=== PATIENT | male | born 1935 | race Caucasian/White ===

== ENCOUNTER 2021-06-02 04:38 | Emergency (ER) | payer OTHER ==
[~2021-06-02] VITALS: Ht 182.9 cm; Wt 90.0 kg
[2021-06-02 05:05] LABS: BASOPHILS % 0.4 % (0.0-2.0); EOSINOPHILS % 2.5 % (0.0-5.0); HEMATOCRIT. 39.6 % (42.0-52.0); HEMOGLOBIN. 13.4 g/dL (14.0-18.0); LYMPHOCYTES % 27.9 % (20.0-50.0); MEAN CORPUSCULAR HEMOGLOBIN 29.1 pg (28.0-32.0); MEAN CORPUSCULAR VOLUME 86.3 fL (80.0-94.0); MONOCYTES % 5.6 % (2.0-8.0); NEUTROPHILS % 63.6 % (40.0-76.0); PLATELET 200 x1000/uL (130-400); RED BLOOD CELL COUNT 4.59 mill/uL (4.7-6.1); RED CELL DISTRIBUTION WIDTH 14.5 % (11.6-14.6)
[2021-06-02 05:10] LABS: CHLORIDE 109 mEq/L (98-107)
[2021-06-02 05:16] LABS: PROTHROMBIN TIME 10.3 sec (9.6-11.0)
[2021-06-02] MEDS ORDERED: ASPIRIN 325MG EC TABLET PO ONE (06:30)
[2021-06-02 08:15] VITALS: BP 145/75
== END 2021-06-02 10:58 | disposition short-term general hospital (02) ==
LOC: ER 04:38
DX: G45.9 Transient cerebral ischemic attack, unspecified (principal); N28.9 Disorder of kidney and ureter, unspecified; I10 Essential (primary) hypertension
CPT/HCPCS: 36415; 71045; 80053; 82962; 83880; 84484; 85025; 93005; 99291

== ENCOUNTER 2021-07-04 10:07 | Emergency (ER) | payer OTHER ==
[~2021-07-04] VITALS: Ht 170.2 cm; Wt 75.0 kg
[2021-07-04] MEDS ORDERED: SODIUM CHLORIDE 0.9% 500 ML IV ONE (10:45)
[2021-07-04 11:06] LABS: BASOPHILS % 0.6 % (0.0-2.0); HEMATOCRIT. 35.6 % (42.0-52.0); HEMOGLOBIN. 11.8 g/dL (14.0-18.0); MEAN CORPUSCULAR HEMOGLOBIN 28.8 pg (28.0-32.0); MEAN PLATELET VOLUME 9.2 fl (7.4-10.4); MONOCYTES % 4.4 % (2.0-8.0); PLATELET 196 x1000/uL (130-400); RED BLOOD CELL COUNT 4.09 mill/uL (4.7-6.1)
[2021-07-04 11:14] LABS: CHLORIDE 106 mEq/L (98-107)
[2021-07-04] MEDS ORDERED: IOHEXOL-300 100 ML BOTTLE ONE (12:17)
[2021-07-04] MEDS ORDERED: ACETAMINOPHEN 325MG TABLET PO ONE (12:45)
[2021-07-04 13:58] VITALS: BP 115/71
== END 2021-07-04 14:42 | disposition short-term general hospital (02) ==
LOC: ER 10:26 → EDBEDREQ 12:18 → EDBEDREQTM 12:18 → CANBEDREQ 13:50 → ER 14:42
DX: R55 Syncope and collapse (principal); S29.8XXA Other specified injuries of thorax, initial encounter; S39.81XA Other specified injuries of abdomen, initial encounter; I69.920 Aphasia following unspecified cerebrovascular disease; I69.992 Facial weakness following unspecified cerebrovascular disease; E11.649 Type 2 diabetes mellitus with hypoglycemia without coma; R90.82 White matter disease, unspecified; I10 Essential (primary) hypertension; W01.0XXA Fall on same level from slipping, tripping and stumbling without subsequent striking against object, initial encounter; Y93.89 Activity, other specified; Y92.89 Other specified places as the place of occurrence of the external cause
CPT/HCPCS: 36415; 70450; 71045; 71260; 72125; 74177; 80053; 83690; 83880; 84484; 85025; 93005; 96360; 96361; 99285; J7040; Q9967

== ENCOUNTER 2021-07-15 08:36 | Inpatient (IN) | payer OTHER ==
[~2021-07-15] VITALS: Ht 175.3 cm; Wt 62.6 kg
[2021-07-15 09:56] LABS: BASOPHILS % 0.5 % (0.0-2.0); HEMATOCRIT. 25.3 % (42.0-52.0); HEMOGLOBIN. 8.4 g/dL (14.0-18.0); LYMPHOCYTES % 10.6 % (20.0-50.0); MEAN CORPUSCULAR VOLUME 87.8 fL (80.0-94.0); MEAN PLATELET VOLUME 9.6 fl (7.4-10.4); MONOCYTES % 4.5 % (2.0-8.0); NEUTROPHILS % 83.4 % (40.0-76.0); PLATELET 218 x1000/uL (130-400); RED BLOOD CELL COUNT 2.88 mill/uL (4.7-6.1); RED CELL DISTRIBUTION WIDTH 15.5 % (11.6-14.6)
[2021-07-15 10:03] LABS: CHLORIDE 111 mEq/L (98-107)
[2021-07-15 10:05] LABS: PROTHROMBIN TIME 11.1 sec (9.6-11.0)
[2021-07-15] MEDS ORDERED: DOCUSATE SODIUM 100MG CAPSULE PO PRN (11:00)
[2021-07-15] MEDS ORDERED: DEXTROSE 50% WATER 50ML SYRINGE IV PRN (11:00)
[2021-07-15] MEDS ORDERED: GUAIFENESIN 200MG/10ML SUGAR FREE UDC PO PRN (11:00)
[2021-07-15] MEDS ORDERED: TRAMADOL 50MG TABLET PO PRN (11:00)
[2021-07-15] MEDS: DEXT 5%/LACTATED RINGERS 1,000 ML IV SCH (11:00)
[2021-07-15] MEDS ORDERED: CLONIDINE 0.1MG TABLET PO PRN (11:00)
[2021-07-15] MEDS ORDERED: NITROGLYCERIN 0.4MG TABLET SL SL PRN (11:00)
[2021-07-15] MEDS ORDERED: IPRATROPIUM/ALBUTEROL 0.5-3(2.5)MG/3ML NEB NEB PRN (11:00)
[2021-07-15] MEDS ORDERED: ACETAMINOPHEN 325MG TABLET PO PRN ×2 (11:00)
[2021-07-15] MEDS ORDERED: MAGNESIUM/ALUMINUM HYDROXIDE/SIMETHICONE 30ML UDC PO PRN (11:00)
[2021-07-15] MEDS ORDERED: ONDANSETRON HCL 4MG/2ML INJ IV PRN (11:00)
[2021-07-15] MEDS ORDERED: NALOXONE HCL 0.4MG/ML VIAL IV PRN (11:15)
[2021-07-15] MEDS ORDERED: PANTOPRAZOLE 80 MG in SODIUM CHLORIDE 0.9% 100 ML IV SCH (12:00)
[2021-07-15] MEDS: INSULIN LISPRO 100 UNITS/ML SUBCUT SCH ×3 (13:20→21:00)
[2021-07-15 14:23] LABS: TOTAL IRON BINDING CAPACITY 275 ug/dL (250-450)
[2021-07-15 14:29] LABS: FOLIC ACID (FOLATE) SERUM > 20.00 ng/mL (>5.38)
[2021-07-15 14:40] LABS: VITAMIN B12 SERUM 366 pg/mL (211-911)
[2021-07-15 15:54] LABS: FERRITIN 17 ng/mL (22-322)
[2021-07-15] MEDS: BLOOD SUGAR DIAGNOSTIC STRIP TEST SCH ×3 (16:10→21:00)
[2021-07-15 16:20] LABS: HEMATOCRIT 25.9 % (42.0-52.0); HEMOGLOBIN 8.6 g/dL (14.0-18.0)
[2021-07-15 17:50] LABS: *AMPHETAMINES SCREEN URINE NEGATIVE (NEGATIVE); *BARBITURATES SCREEN URINE NEGATIVE (NEGATIVE)
[2021-07-15 17:51] LABS: *BENZODIAZEPINES SCREEN URINE NEGATIVE (NEGATIVE); *COCAINE SCREEN URINE NEGATIVE (NEGATIVE); CANNABINOID URINE SCREEN NEGATIVE (NEGATIVE); METHADONE URINE SCREEN NEGATIVE (NEGATIVE); OPIATES URINE SCREEN NEGATIVE (NEGATIVE); PHENCYCLIDINE URINE SCREEN NEGATIVE (NEGATIVE)
[2021-07-15] MEDS ORDERED: IRON SUCROSE COMPLEX 100 MG/5 ML ML IV SCH (18:45)
[2021-07-15 20:30] VITALS: BP 150/53
[2021-07-15 22:00] VITALS: BP 129/60
[2021-07-15] MEDS: IRON SUCROSE COMPLEX 100 MG/5 ML ML IV SCH (22:35)
[2021-07-15] MEDS: ZOLPIDEM TARTRATE 5MG TABLET PO PRN (22:35)
[2021-07-15 23:40] VITALS: BP 150/53
[2021-07-15] MEDS ORDERED: ASPI-1497 PO (23:43)
[2021-07-16] VITALS (11 sets, daily range): BP systolic 102–155; BP diastolic 48–80
[2021-07-16] MEDS: DEXT 5%/LACTATED RINGERS 1,000 ML IV SCH ×2 (00:36→13:08)
[2021-07-16 01:18] LABS: HEMOGLOBIN 7.7 g/dL (14.0-18.0)
[2021-07-16 06:34] LABS: INR 1.1; PROTHROMBIN TIME 11.3 sec (9.6-11.0)
[2021-07-16 06:37] LABS: CHLORIDE 112 mEq/L (98-107)
[2021-07-16 06:43] LABS: BASOPHILS % 0.5 % (0.0-2.0); EOSINOPHILS % 1.3 % (0.0-5.0); HEMATOCRIT. 23.4 % (42.0-52.0); HEMOGLOBIN. 7.9 g/dL (14.0-18.0); LYMPHOCYTES % 15.8 % (20.0-50.0); MEAN CORPUSCULAR HEMOGLOBIN 29.4 pg (28.0-32.0); MEAN CORPUSCULAR VOLUME 87.3 fL (80.0-94.0); MEAN PLATELET VOLUME 9.2 fl (7.4-10.4); MONOCYTES % 5.8 % (2.0-8.0); NEUTROPHILS % 76.6 % (40.0-76.0); PLATELET 201 x1000/uL (130-400); RED BLOOD CELL COUNT 2.68 mill/uL (4.7-6.1); RED CELL DISTRIBUTION WIDTH 15.2 % (11.6-14.6)
[2021-07-16 06:51] LABS: PHOSPHORUS 1.6 mg/dL (2.5-4.9)
[2021-07-16] MEDS: INSULIN LISPRO 100 UNITS/ML SUBCUT SCH ×4 (07:40→21:00)
[2021-07-16] MEDS: BLOOD SUGAR DIAGNOSTIC STRIP TEST SCH ×4 (08:01→21:08)
[2021-07-16 12:53] LABS: HEMATOCRIT 22.5 % (42.0-52.0); HEMOGLOBIN 7.5 g/dL (14.0-18.0)
[2021-07-16] MEDS: PANTOPRAZOLE SODIUM 40 MG/VIAL IV SCH (13:08)
[2021-07-16] MEDS: ZOLPIDEM TARTRATE 5MG TABLET PO PRN (21:07)
[2021-07-16] MEDS: IRON SUCROSE COMPLEX 100 MG/5 ML ML IV SCH (21:07)
[2021-07-16] MEDS: HALOPERIDOL LACTATE 5MG/ML VIAL IM PRN (21:31)
[2021-07-16 22:56] LABS: HEMATOCRIT 26.6 % (42.0-52.0); HEMOGLOBIN 9.1 g/dL (14.0-18.0)
[2021-07-17] VITALS (7 sets, daily range): BP systolic 115–148; BP diastolic 57–72
[2021-07-17] MEDS: DEXT 5%/LACTATED RINGERS 1,000 ML IV SCH ×2 (02:57→17:49)
[2021-07-17 06:29] LABS: BASOPHILS % 0.4 % (0.0-2.0); HEMATOCRIT. 27.2 % (42.0-52.0); HEMOGLOBIN. 9.2 g/dL (14.0-18.0); MEAN CORPUSCULAR HEMOGLOBIN 29.1 pg (28.0-32.0); MEAN CORPUSCULAR VOLUME 86.4 fL (80.0-94.0); MONOCYTES % 6.6 % (2.0-8.0); PLATELET 157 x1000/uL (130-400); RED BLOOD CELL COUNT 3.14 mill/uL (4.7-6.1); RED CELL DISTRIBUTION WIDTH 14.7 % (11.6-14.6)
[2021-07-17 06:46] LABS: CHLORIDE 112 mEq/L (98-107)
[2021-07-17] MEDS: BLOOD SUGAR DIAGNOSTIC STRIP TEST SCH ×4 (07:27→20:18)
[2021-07-17] MEDS: INSULIN LISPRO 100 UNITS/ML SUBCUT SCH ×4 (07:27→20:17)
[2021-07-17] MEDS ORDERED: BACTERIOSTATIC SODIUM CHLORIDE 0.9% 30ML VIAL IJ ONE (08:19)
[2021-07-17] MEDS ORDERED: MIDAZOLAM HCL 5 MG/5 ML VIAL IV PRN (10:00)
[2021-07-17] MEDS ORDERED: FENTANYL CITRATE/PF 50MCG/ML 2ML VIAL IV PRN (10:01)
[2021-07-17] MEDS ORDERED: MIDAZOLAM HCL 5 MG/5 ML VIAL ONE (10:07)
[2021-07-17] MEDS ORDERED: FENTANYL CITRATE/PF 50MCG/ML 2ML VIAL ONE (10:07)
[2021-07-17 14:12] LABS: HEMOGLOBIN 10.9 g/dL (14.0-18.0)
[2021-07-17] MEDS: PANTOPRAZOLE SODIUM 40 MG/VIAL IV SCH (14:24)
[2021-07-17] MEDS: HALOPERIDOL LACTATE 5MG/ML VIAL IM PRN (15:57)
[2021-07-17 17:23] LABS: HEMOGLOBIN 9.4 g/dL (14.0-18.0)
[2021-07-17] MEDS: ZOLPIDEM TARTRATE 5MG TABLET PO PRN (20:17)
[2021-07-17] MEDS: IRON SUCROSE COMPLEX 100 MG/5 ML ML IV SCH (20:17)
[2021-07-18] VITALS: BP 115/53
[2021-07-18 00:59] LABS: HEMATOCRIT 27.5 % (42.0-52.0); HEMOGLOBIN 9.1 g/dL (14.0-18.0)
[2021-07-18 04:00] VITALS: BP 122/46
[2021-07-18] MEDS: DEXT 5%/LACTATED RINGERS 1,000 ML IV SCH ×2 (05:59→21:48)
[2021-07-18] MEDS: INSULIN LISPRO 100 UNITS/ML SUBCUT SCH ×2 (06:55→12:27)
[2021-07-18] MEDS: BLOOD SUGAR DIAGNOSTIC STRIP TEST SCH ×2 (06:55→12:27)
[2021-07-18 08:00] VITALS: BP 115/62
[2021-07-18 12:00] VITALS: BP 130/56
[2021-07-18] MEDS: PANTOPRAZOLE SODIUM 40 MG/VIAL IV SCH ×2 (12:27→21:47)
[2021-07-18 16:00] VITALS: BP 138/56
[2021-07-18 20:00] VITALS: BP 134/61
[2021-07-18] MEDS: ZOLPIDEM TARTRATE 5MG TABLET PO PRN (20:27)
[2021-07-19] VITALS: BP 125/55
[2021-07-19 04:00] VITALS: BP 141/60
[2021-07-19 06:53] LABS: BASOPHILS % 0.5 % (0.0-2.0); EOSINOPHILS % 2.6 % (0.0-5.0); HEMATOCRIT. 29.8 % (42.0-52.0); HEMOGLOBIN. 10.1 g/dL (14.0-18.0); LYMPHOCYTES % 15.7 % (20.0-50.0); MEAN CORPUSCULAR HEMOGLOBIN 29.8 pg (28.0-32.0); MEAN CORPUSCULAR VOLUME 88.2 fL (80.0-94.0); MEAN PLATELET VOLUME 8.9 fl (7.4-10.4); MONOCYTES % 8.6 % (2.0-8.0); NEUTROPHILS % 72.6 % (40.0-76.0); PLATELET 211 x1000/uL (130-400); RED BLOOD CELL COUNT 3.38 mill/uL (4.7-6.1)
[2021-07-19 08:00] VITALS: BP 135/75
[2021-07-19] MEDS: PANTOPRAZOLE SODIUM 40 MG/VIAL IV SCH (08:03)
[2021-07-19] MEDS ORDERED: MULTIVITAMINS,THER W-MINERALS TABLET PO SCH (09:00)
[2021-07-19] MEDS ORDERED: POTASSIUM CHLORIDE 20MEQ TABLET SR PO SCH (10:15)
[2021-07-19 10:16] VITALS: BP 135/75
== END 2021-07-19 11:50 | disposition short-term general hospital (02) | DRG 378 ==
LOC: ER 08:50 → 8WST 10:28 → ENRESERV 19:30 → SUPCPDRO 20:26 → 8WST 20:47
PROVIDERS: ADMIT Internal Medicine; ATTEND Internal Medicine
PROC: 30233N1 Transfusion of Nonautologous Red Blood Cells into Peripheral Vein, Percutaneous Approach (ICD-10-PCS; principal; 2021-07-16)
PROC: 0DB78ZX Excision of Stomach, Pylorus, Via Natural or Artificial Opening Endoscopic, Diagnostic (ICD-10-PCS; 2021-07-17)
DX: K29.71 Gastritis, unspecified, with bleeding (principal); D62 Acute posthemorrhagic anemia; E44.0 Moderate protein-calorie malnutrition; G93.40 Encephalopathy, unspecified; E11.9 Type 2 diabetes mellitus without complications; F03.90 Unspecified dementia, unspecified severity, without behavioral disturbance, psychotic disturbance, mood disturbance, and anxiety; I10 Essential (primary) hypertension; D50.9 Iron deficiency anemia, unspecified; K29.81 Duodenitis with bleeding; Z20.822 Contact with and (suspected) exposure to COVID-19; I69.320 Aphasia following cerebral infarction; Z79.4 Long term (current) use of insulin; Z68.20 Body mass index [BMI] 20.0-20.9, adult
CPT/HCPCS: 36415; 80048; 80053; 80305; 82270; 82607; 82728; 82746; 82962; 83036; 83540; 83550; 83735; 84100; 85014; 85018; 85025; 86850; 86900; 86920; 87426; 88305; 88312; 88313; 93005; 93970; 97162; 99285; C1893; C9113; J1630; J2250; J3010; J3490; J7050; P9016